=== PATIENT | male | born 1940 | race Caucasian/White ===

== ENCOUNTER 2018-01-12 08:55 | Day surgery (SDC) | payer MEDICARE, BC ==
[2018-01-12] VITALS (11 sets, daily range): BP systolic 131–162; BP diastolic 66–91
[~2018-01-12] VITALS: Ht 182.9 cm; Wt 141.2 kg
[2018-01-12] MEDS ORDERED: sod bicarbonate 150mEq in D5W 1,150 ML IV ONE (09:45)
[2018-01-12 09:49] LABS: BASOPHILS % (AUTO) 0.5 % (0-1); EOSINOPHILS # (AUTO) 0.5 X10'3 (0-0.9); EOSINOPHILS % (AUTO) 6.9 % (0-6); HEMATOCRIT 47.7 % (42.0-52.0); HEMOGLOBIN 15.8 g/dl (14.0-17.9); LYMPHOCYTES # (AUTO) 1.2 X10'3 (1.1-4.8); LYMPHOCYTES % (AUTO) 15.8 % (21-51); MEAN CORPUSCULAR HEMOGLOBIN 31.8 PG (27.0-31.0); MEAN CORPUSCULAR VOLUME 96.2 FL (78-98); MEAN PLATELET VOLUME 7.8 FL (7.4-10.4); MONOCYTES # (AUTO) 0.4 X10'3 (0-0.9); MONOCYTES % (AUTO) 5.7 % (2-12); NEUTROPHILS # (AUTO) 5.7 X10'3 (1.8-7.7); NEUTROPHILS % (AUTO) 71.1 % (42-75); PLATELET COUNT 212 X10'3 (140-440); RED BLOOD COUNT 4.96 X10'6 (4.70-6.10); RED CELL DISTRIBUTION WIDTH 14.5 % (11.5-14.5); WHITE BLOOD COUNT 7.8 X10'3 (4.5-11.0)
[2018-01-12] MEDS ORDERED: ALLO300T8 PO (09:55)
[2018-01-12] MEDS ORDERED: LYRICA PO (09:55)
[2018-01-12] MEDS ORDERED: AMLO10TA PO (09:55)
[2018-01-12] MEDS ORDERED: METO50TA7 PO (09:55)
[2018-01-12] MEDS ORDERED: POTA10TA10 PO (09:55)
[2018-01-12] MEDS ORDERED: ATOR20TA PO (09:55)
[2018-01-12] MEDS ORDERED: FLEC100T2 PO (09:55)
[2018-01-12] MEDS ORDERED: BUPR-83 PO (09:55)
[2018-01-12] MEDS ORDERED: LISI40TA4 PO (09:55)
[2018-01-12] MEDS ORDERED: [UNRECOGNIZED DRUG - CODE] (09:55)
[2018-01-12 09:58] LABS: ALBUMIN 3.7 G/DL (3.4-5.0); ANION GAP 5 (8-16); BLOOD UREA NITROGEN 14 MG/DL (7-18); BUN/CREATININE RATIO 15.4 (5.4-32.0); CALCIUM 8.9 MG/DL (8.5-10.1); CHLORIDE 105 MMOL/L (99-107); CREATININE 0.91 MG/DL (0.60-1.10); GLUCOSE 101 MG/DL (70-104); INR 1.1 INR; POTASSIUM 3.5 MMOL/L (3.5-5.1); PROTHROMBIN TIME 11.3 SECONDS (9.0-12.0); SODIUM 142 MMOL/L (135-145); TOTAL CARBON DIOXIDE 32.2 MMOL/L (24-32); eGFR 81 ML/MIN
[2018-01-12] MEDS ORDERED: nitroGLYCERIN-Tridil 50MG/D5W 250 ML IV ONE (11:21)
[2018-01-12] MEDS ORDERED: verapamil 2.5 mg/ml inj IV ONE (11:21)
[2018-01-12] MEDS ORDERED: midazolam 2 mg/2 ml injection ONE (11:22)
[2018-01-12] MEDS ORDERED: iohexol 350MG/ML 100ml bottle IV ONE (11:22)
[2018-01-12] MEDS ORDERED: fentaNYL/PF 50MCG/1 ML 2ML syringe ONE (11:22)
[2018-01-12] MEDS ORDERED: LIDOcaine 1% w/EPI 1:100,000 30ml vial (MDV) ONE (11:22)
[2018-01-12] MEDS ORDERED: iohexol 350 MG/ML 50ML vial IV ONE (11:22)
[2018-01-12] MEDS ORDERED: LIDOcaine 1% 30ml preserv. free vial ONE (11:27)
[2018-01-12] MEDS ORDERED: heparin 1,000unit/ml 10ml vial 10 ML ONE (11:41)
[2018-01-12] MEDS ORDERED: proCHLORperazine 10 MG/2 ml inj ONE (11:50)
[2018-01-12] MEDS ORDERED: pneumococcal 23-VAL P-sac vacc 25 mcg/0.5ml vial IMVAC ONE (12:30)
== END 2018-01-12 16:00 | disposition home or self-care (01) ==
LOC: SSTAY O 08:55
PROVIDERS: ATTEND Internal Medicine Cardiovascular Disease
DX: R94.39 Abnormal result of other cardiovascular function study (principal); I10 Essential (primary) hypertension; Z23 Encounter for immunization; E66.01 Morbid (severe) obesity due to excess calories; I48.0 Paroxysmal atrial fibrillation; I45.3 Trifascicular block; G47.33 Obstructive sleep apnea (adult) (pediatric); E78.5 Hyperlipidemia, unspecified; I42.8 Other cardiomyopathies; Z85.51 Personal history of malignant neoplasm of bladder; Z88.2 Allergy status to sulfonamides; Z72.89 Other problems related to lifestyle; Z87.891 Personal history of nicotine dependence; Z98.41 Cataract extraction status, right eye; Z98.42 Cataract extraction status, left eye; Z90.89 Acquired absence of other organs; Z98.890 Other specified postprocedural states; Z79.899 Other long term (current) drug therapy; Z68.41 Body mass index [BMI] 40.0-44.9, adult
CPT/HCPCS: 36415; 80048; 83735; 85025; 85610; 90732; 93005; 93458; 99152; 99153; A6257; A6258; C1769; C1894; J0780; J1644; J2250; J3010; J3490; J7030; Q9967; A4620

== ENCOUNTER 2019-06-17 10:37 | Emergency (ER) | payer MEDICARE, BC ==
[~2019-06-17] VITALS: Ht 182.9 cm; Wt 138.6 kg
[~2019-06-17 10:37] MED LIST: ALLO300T8 PO; AMLO10TA PO; ATOR20TA PO; BUPR-83 PO; FLEC100T2 PO; LISI40TA4 PO; LYRICA PO; METO50TA7 PO; POTA10TA10 PO; [UNRECOGNIZED DRUG - CODE]
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
[2019-06-17 11:22] LABS: BASOPHILS # (AUTO) 0.1 X10'3 (0-0.2); BASOPHILS % (AUTO) 0.6 % (0-1); EOSINOPHILS # (AUTO) 0.2 X10'3 (0-0.9); EOSINOPHILS % (AUTO) 2.8 % (0-6); HEMOGLOBIN 15.2 g/dl (14.0-17.9); LYMPHOCYTES # (AUTO) 1.1 X10'3 (1.1-4.8); MEAN CORPUSCULAR HEMOGLOBIN 33.4 PG (27.0-31.0); MEAN CORPUSCULAR HGB CONC 33.7 g/dL (33.0-36.5); MEAN CORPUSCULAR VOLUME 99.1 FL (78-98); MEAN PLATELET VOLUME 8.2 FL (7.4-10.4); MONOCYTES # (AUTO) 0.6 X10'3 (0-0.9); MONOCYTES % (AUTO) 6.6 % (2-12); NEUTROPHILS # (AUTO) 6.9 X10'3 (1.8-7.7); PLATELET COUNT 234 X10'3 (140-440); RED BLOOD COUNT 4.54 X10'6 (4.70-6.10); RED CELL DISTRIBUTION WIDTH 14.7 % (11.5-14.5); WHITE BLOOD COUNT 8.8 X10'3 (4.5-11.0)
[2019-06-17 11:39] LABS: ALANINE AMINOTRANSFERASE 27 U/L (12-78); ALBUMIN 3.4 G/DL (3.4-5.0); ALKALINE PHOSPHATASE 58 IU/L (46-116); ANION GAP 4 (8-16); ASPARTATE AMINO TRANSFERASE 20 U/L (10-37); BILIRUBIN,TOTAL 0.5 MG/DL (0.1-1.0); BLOOD UREA NITROGEN 38 MG/DL (7-18); BUN/CREATININE RATIO 24.2 (5.4-32.0); CALCIUM 9.2 MG/DL (8.5-10.1); CHLORIDE 103 MMOL/L (99-107); CREATININE 1.57 MG/DL (0.60-1.10); GLUCOSE 95 MG/DL (70-104); POTASSIUM 4.4 MMOL/L (3.5-5.1); SODIUM 135 MMOL/L (135-145); TOTAL CARBON DIOXIDE 27.7 MMOL/L (24-32); TOTAL PROTEIN 6.7 G/DL (6.4-8.2); eGFR 43 ML/MIN
[2019-06-17] MEDS ORDERED: normal saline 1000ml 1,000 ML IV ONE (12:50)
--- NOTE | 2019-06-17 12:55 | NUR ---
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
--- NOTE | 2019-06-17 14:25 | NUR ---
PT LAB DRAWN FROM IV SITE ,PT IV FLUID INFUSING ALMOST GOING TO FINISH,VITALS UPDATED ,PT NEED HELP TO URINATE CARROL THAT WE CAN SEND SAMPLE TO LAB.
[2019-06-17 15:02] LABS: CLARITY,URINE SLIGHTLY CLOUDY (Clear); COLOR,URINE STRAW (Yellow); GLUCOSE, URINE NEGATIVE (Neg); KETONES,URINE NEGATIVE (Neg); LEUKOCYTE ESTERASE ,URINE LARGE (Neg); NITRITES, URINE NEGATIVE (Neg); OCCULT BLOOD,URINE NEGATIVE (Neg); PROTEIN,URINE NEGATIVE (Neg); UROBILINOGEN,URINE 0.2 E.U/dL (0.2-1.0)
[2019-06-17 15:10] LABS: UA COLLECTION TYPE VOIDED
[2019-06-17 15:11] LABS: HYALINE CASTS 0-3 /LPF (NEGATIVE); MUCUS STRANDS FEW /LPF (Neg); SQUAMOUS EPITHELIAL CELL,UR FEW /LPF (FEW); TRANSITIONAL EPI CELLS,URINE FEW /HPF; WBC CLUMPS,URINE FEW /HPF (NEGATIVE)
[2019-06-17 15:12] LABS: BACTERIA,URINE FEW /HPF (Neg); WBC,URINE 50-100 /HPF (0-4)
[2019-06-17 15:13] LABS: RBC,URINE 0-2 /HPF (0-2)
[2019-06-17 15:22] VITALS: BP 123/66
[2019-06-17] MEDS ORDERED: SULF1TAB49 PO (16:03)
== END 2019-06-17 15:25 | disposition home or self-care (01) ==
LOC: ER 10:38
DX: E86.0 Dehydration (principal); N39.0 Urinary tract infection, site not specified; Z88.2 Allergy status to sulfonamides; Z79.899 Other long term (current) drug therapy
CPT/HCPCS: 36415; 70450; 71045; 80053; 81001; 84484; 85025; 87077; 87088; 87186; 93005; 96360; 99284; J7030